=== PATIENT | male | born 1960 | race Caucasian/White ===

== ENCOUNTER → 2021-03-25 | Outpatient (CLI) | payer MEDICARE ==
[~2021-03-25] MED LIST: ALPR0.5T93 PO; ASCO500T8 PO; BIO D MULSION FORTE PO; COLE1TAB2 PO; GLUC15006 PO; HYDR1TAB53 PO; IBUP-1223 PO; L.AC1CAP6 PO; LOPE2TAB28 PO; OMEP-110 PO; UBID100C41 PO; Vitamin B; Vitamin D3 PO; [UNRECOGNIZED DRUG - OTHER] PO; [UNRECOGNIZED DRUG - REMARK] PO; vitamin b-12 IM
== END | disposition home or self-care (01) ==
LOC: STAR 11:08
PROVIDERS: ATTEND Internal Medicine Gastroenterology
DX: Z20.822 Contact with and (suspected) exposure to COVID-19 (principal)
CPT/HCPCS: U0003; U0005

== ENCOUNTER 2021-03-31 07:11 | Day surgery (SDC) | payer MEDICARE ==
[2021-03-25 12:17] VITALS: BP 131/79
[~2021-03-31] VITALS: Ht 180.3 cm; Wt 84.7 kg
[2021-03-31] MEDS ORDERED: CHLORHEXIDINE 15 ML UDC PO ONE (07:30)
[2021-03-31] MEDS ORDERED: LACTATED RINGERS 1,000 ML IV SCH (07:30)
[2021-03-31 07:40] VITALS: BP 131/79
[2021-03-31] MEDS ORDERED: PROPOFOL 50 ML ONE (09:03)
[2021-03-31] MEDS ORDERED: PROPOFOL 10 MG/ML, 20ML ONE (09:03)
[2021-03-31] MEDS ORDERED: MEPERIDINE/PF 25MG/0.5ML IVPush PRN (09:30)
[2021-03-31] MEDS ORDERED: FENTANYL PF 100 MCG/2ML IV PRN (09:30)
[2021-03-31] MEDS ORDERED: DIAZEPAM 5 MG/ML, 2ML IVPush PRN (09:30)
[2021-03-31] MEDS ORDERED: ONDANSETRON 2MG/ML, 2ML IVPush PRN (09:30)
[2021-03-31] MEDS ORDERED: LABETALOL 5MG/ML, 20ML IV PRN (09:30)
[2021-03-31] MEDS ORDERED: EPHEDRINE 50 MG/ML, 1ML IVPush PRN (09:30)
[2021-03-31] MEDS ORDERED: morphine SULFATE 10 MG/ML, 1ML IVPush PRN (09:30)
[2021-03-31] MEDS ORDERED: EPHEDRINE 50 MG/ML, 1ML IM PRN (09:30)
[2021-03-31] MEDS ORDERED: OXYcodone 5 MG/5 ML ORAL.SOL UDC PO PRN (09:30)
[2021-03-31] MEDS ORDERED: DIPHENHYDRAMINE 50 MG/ML, 1ML IVPush PRN (09:30)
[2021-03-31] MEDS ORDERED: PROMETHAZINE 25 MG/ML, 1ML IVPush PRN (09:30)
== END 2021-03-31 10:45 | disposition home or self-care (01) ==
LOC: OUT 07:11
PROVIDERS: ATTEND Internal Medicine Gastroenterology
DX: K31.89 Other diseases of stomach and duodenum (principal); K44.9 Diaphragmatic hernia without obstruction or gangrene; Z85.038 Personal history of other malignant neoplasm of large intestine; Z88.8 Allergy status to other drugs, medicaments and biological substances
CPT/HCPCS: 43259; J2704; J7120